=== PATIENT | female | born 1995 | race Caucasian/White ===

== ENCOUNTER 2016-11-03 15:20 | Inpatient (IN) | payer OTHER ==
[2016-11-03] MEDS ORDERED: DEXTROSE 5%-LACTATED RINGERS 1,000 ML IV SCH ×2 (17:00→17:45)
--- NOTE | 2016-11-03 17:01 | HP ---
Past Medical History - Admission Chief Complaint: Labor pain History of Present Illness: 21 yo @ 40 weeks gestation, presents c/o labor pain. She denies any ROM nor vaginal bleeding. History Source: Patient Limitations to Obtaining History: No Limitations - Past Medical History ...: 1 ...Para: 0 - Past Surgical History Past Surgical History: Yes: None Hx Myomectomy: No Hx Transabdominal Cerclage: No - Smoking History Smoking history: Never smoked Have you smoked in the past 12 months: No - Alcohol/Substance Use Hx Alcohol Use: No History of Substance Use: reports: None - Social History Usual Living Arrangement: Yes: With Parent History of Recent Travel: No Home Medications - Allergies Allergies/Adverse Reactions: Allergies Allergy/AdvReac Type Severity Reaction Status Date / Time No Known Allergies Allergy Verified 11/03/16 17:03 - Home Medications Home Medications: Ambulatory Orders [id number]/Iron Fumarate/FA/Dss [ 19 Tablet] 1 each PO DAILY 10/25/16 Family Disease History - Family Disease History Family History: Unremarkable Review of Systems - Review of Systems Constitutional: reports: No Symptoms Eyes: reports: No Symptoms HENT: reports: No Symptoms Neck: reports: No Symptoms Cardiovascular: reports: No Symptoms Respiratory: reports: No Symptoms Gastrointestinal: reports: No Symptoms Genitourinary: reports: Pain Breasts: reports: No Symptoms Reported Musculoskeletal: reports: No Symptoms Integumentary: reports: No Symptoms Neurological: reports: No Symptoms Psychiatric: reports: No Symptoms Pain Intensity: 8 Physical Exam - Maternity Constitutional: Yes: Well Nourished Eyes: Yes: Conjunctiva Clear HENT: Yes: Atraumatic Neck: Yes: Supple, Trachea Midline Cardiovascular: Yes: Regular Rate and Rhythm Lungs: Clear to auscultation - Abdominal Exam/OB Number of Fetuses: Single Presentation: Vertex Intensity: Mod/Strong - Vaginal Exam/OB Vaginal Bleediing: No - Physical Exam Psychiatric: Yes: Oriented
[2016-11-03 17:51] VITALS: BMI 29.2
[2016-11-03 17:54] LABS: BASOPHIL 0.5 % (0-2.0); EOSINOPHIL 0.2 % (0-4.5); MCHC 32.6 g/dl (32.0-36.0); MEAN PLT VOLUME 11.1 fl (7.5-11.1); NEUTROPHILS 80.4 % (42.8-82.8); PLATELET COUNT 134 K/MM3 (134-434); RDW 14.5 % (11.6-15.6); WHITE BLOOD COUNT 13.8 K/mm3 (4.0-10.0)
[2016-11-03 18:36] LABS: INR 0.9 (0.82-1.09); PROTHROMBIN TIME (PATIENT) 9.9 SEC (9.98-11.88)
[2016-11-03 18:39] LABS: ACTIVATED PTT 26.2 SECONDS (26.9-34.4)
[2016-11-03] MEDS ORDERED: BUTORPHANOL TARTRATE 1 MG/ML VIAL IVPUSH PRN (18:44)
[2016-11-03] MEDS ORDERED: PROMETHAZINE HCL 25 MG/1 ML VIAL IVPUSH PRN (18:45)
[2016-11-03 19:42] LABS: ANION GAP 11 (8-16); CALCIUM 8.8 mg/dL (8.5-10.1); CO2 22 mmol/L (21-32); CREATININE 0.4 mg/dL (0.55-1.02); GLUCOSE,RANDOM 87 mg/dL (74-106)
[2016-11-03] MEDS ORDERED: FENTANYL/BUPIVACAINE/NS/PF - PCEA - 50 ML DISP.SYRIN EP SCH (22:45)
[2016-11-03] MEDS ORDERED: ELECTROLYTE-148 SOLN 500 ML IV ONE (23:30)
[2016-11-03] MEDS: ELECTROLYTE-148 SOLN 1,000 ML IV SCH (23:30)
[2016-11-04] MEDS: ELECTROLYTE-148 SOLN 1,000 ML IV SCH ×3 (04:30→07:15)
[2016-11-04] MEDS ORDERED: ACETAMINOPHEN 325 MG TABLET (FP) PO ONE (06:15)
[2016-11-04] MEDS ORDERED: ELECTROLYTE-148 SOLN 500 ML IV ONE (07:00)
[2016-11-04] MEDS ORDERED: CITRIC ACID/SODIUM CITRATE 30 ML UNIT-DOSE CUP PO ONE ×2 (07:00→07:16)
--- NOTE | 2016-11-04 07:23 | PN ---
Progress Note (short form) - Note Progress Note: Patient seen and evaluated, status post epidural anesthesia. She's comfortable, denies any fever. FHR : !90's, no accelerations [place] : + irregular ctx VE : /-2 A / P :
[2016-11-04] MEDS ORDERED: ELECTROLYTE-148 SOLN 1,000 ML IV SCH (07:30)
[2016-11-04] MEDS ORDERED: morphine SULFATE/Preservative Free 0.5 MG/ML (1cc Syringe) EP ONE (08:11)
[2016-11-04] MEDS ORDERED: ONDANSETRON 4 MG/2 ML VIAL IVPB PRN (08:11)
[2016-11-04] MEDS ORDERED: IBUPROFEN 800 MG/8 ML IJ IVPB PRN (08:12)
[2016-11-04] MEDS ORDERED: METHYLERGONOVINE MALEATE 0.2 MG/1 ML AMP IM PRN (08:14)
[2016-11-04 08:18] LABS: ARTERIAL BLD GAS O2 SATURATION 56.3 % (90-98.9); ARTERIAL BLOOD GAS BASE EXCESS 0.3 meq/l (-2-2); ARTERIAL BLOOD GAS HCO3 25.8 meq/L (22-26); ARTERIAL BLOOD GAS pH 7.36 (7.35-7.45)
--- NOTE | 2016-11-04 08:18 | OP ---
Operative Note - Note: Operative Date: 11/04/16 Pre-Operative Diagnosis: Non Reassuring Heart rate Operation: Primary Low Transverse Findings: Baby in LOT position Post-Operative Diagnosis: Same as Pre-op Surgeon: Meghan Story Shallot Packer: Virginia Rosas Anesthesia: Epidural Specimens Removed: Placenta Estimated Blood Loss (mls): 500
[2016-11-04 08:19] LABS: ARTERIAL BLOOD GAS PO2 27.2 mmHg (80-100); PT. ON O2? no
[2016-11-04 08:21] LABS: ARTERIAL BLD GAS O2 SATURATION 21.9 % (90-98.9); ARTERIAL BLOOD GAS BASE EXCESS -1.1 meq/l (-2-2); ARTERIAL BLOOD GAS HCO3 26.7 meq/L (22-26); ARTERIAL BLOOD GAS pH 7.27 (7.35-7.45)
[2016-11-04 08:22] LABS: ARTERIAL BLOOD GAS PO2 15.7 mmHg (80-100); PT. ON O2? no
[2016-11-04] MEDS: D5W-LR W/ 20 UNITS OXYTOCIN 1,000 ML IV SCH ×2 (10:15→20:44)
[2016-11-05] MEDS: IBUPROFEN 600 MG TABLET (FP) PO PRN ×3 (05:39→22:01)
[2016-11-05] MEDS: SIMETHICONE 80 MG TAB.CHEW (FP) PO PRN ×3 (05:39→22:00)
[2016-11-05] MEDS ORDERED: BISACODYL 10 MG SUPP.RECT RC PRN (08:14)
[2016-11-05 08:34] LABS: BASOPHIL 0.3 % (0-2.0); EOSINOPHIL 0.3 % (0-4.5); MCH 27.8 pg (25.7-33.7); MCHC 32.8 g/dl (32.0-36.0); MEAN CELL VOLUME 84.7 fl (80-96); MEAN PLT VOLUME 10.9 fl (7.5-11.1); NEUTROPHILS 82.2 % (42.8-82.8); PLATELET COUNT 116 K/MM3 (134-434); RDW 14.3 % (11.6-15.6); WHITE BLOOD COUNT 14.9 K/mm3 (4.0-10.0)
--- NOTE | 2016-11-05 08:40 | PN ---
Progress Note (short form) - Note Progress Note: 21F POD1 s/p C section under spinal anesthetic with intrathecal duramorph for post operative pain. Pt states that pain is well controlled, reports no anesthetic complications. Sensory and motor function is intact in bilateral lower extremities.
[2016-11-05] MEDS ORDERED: oxyCODONE HCL 5 MG TABLET PO PRN (09:19)
[2016-11-05] MEDS ORDERED: DIPHTH,PERTUSS(ACELL),TET 0.5 ML DISP.SYRIN IM ONE (10:00)
--- NOTE | 2016-11-05 11:54 | PN ---
Post Progress Note - Subjective Subjective: 21 yo Para 1, status post , seen and evaluated. Doing well, no complaints. Post Day: 1 Type of Delivery: Primary C/S Vital Signs: Vital Signs Temperature 99.6 F 11/05/16 07:15 Pulse Rate 96 H 11/05/16 07:15 Respiratory Rate 18 11/05/16 08:00 Blood Pressure 103/61 11/05/16 07:15 O2 Sat by Pulse Oximetry (%) 99 11/04/16 09:40 Breast Exam: Yes: Soft Uterus: Yes: Fundus Firm Incision: Yes: Dressing dry and intact Abdomen/GI: Yes: Abdomen soft, Tolerating PO Lochia: Yes: Rubra Lochia, amount: Small Extremities: Yes: Calves non-tender Perineum: Yes: Intact Activity: Ambulating - Labs Labs: CBC WBC 14.9 K/mm3 (4.0-10.0) H 11/05/16 07:00 RBC 4.60 M/mm3 (3.60-5.2) 11/05/16 07:00 Hgb 12.8 GM/dL (10.7-15.3) 11/05/16 07:00 Hct 39.0 % (32.4-45.2) 11/05/16 07:00 MCV 84.7 fl (80-96) 11/05/16 07:00 MCH 27.8 pg (25.7-33.7) 11/05/16 07:00 MCHC 32.8 g/dl (32.0-36.0) 11/05/16 07:00 RDW 14.3 % (11.6-15.6) 11/05/16 07:00 Plt Count 116 K/MM3 (134-434) L 11/05/16 07:00 MPV 10.9 fl (7.5-11.1) 11/05/16 07:00 Neutrophils % 82.2 % (42.8-82.8) 11/05/16 07:00 Lymphocytes % 7.8 % (8-40) L D 11/05/16 07:00 Monocytes % 9.4 % (3.8-10.2) 11/05/16 07:00 Eosinophils % 0.3 % (0-4.5) 11/05/16 07:00 Basophils % 0.3 % (0-2.0) 11/05/16 07:00 Problem List - Problems (1) Status post primary low transverse section Code(s): Z98.891 - HISTORY OF UTERINE SCAR FROM PREVIOUS SURGERY Assessment/Plan Status post Stable Ambulation Analgesia as needed Continue Post op care
--- NOTE | 2016-11-05 11:57 | DS ---
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 Signs: Vital Signs Temperature 99.6 F 11/05/16 07:15 Pulse Rate 96 H 11/05/16 07:15 Respiratory Rate 18 11/05/16 08:00 Blood Pressure 103/61 11/05/16 07:15 O2 Sat by Pulse Oximetry (%) 99 11/04/16 09:40 Constitutional: Yes: Well Nourished Eyes: Yes: Conjunctiva Clear HENT: Yes: Atraumatic Neck: Yes: Supple, Trachea Midline Cardiovascular: Yes: Regular Rate and Rhythm Respiratory: Yes: Regular, CTA Bilaterally Gastrointestinal: Yes: Normal Bowel Sounds External Genitalia: Yes: Normal Vaginal Exam: Yes: Normal Uterus: Yes: Firm Wound/Incision: Yes: Mauricio Intact Neurological: Yes: Alert, Oriented Psychiatric: Yes: Alert, Oriented Labs: CBC, BMP 11/05/16 07:00 11/03/16 17:20 Delivery - Delivery Type of Anesthesia: Epidural Episiotomy/Laceration: None EBL (cc): 500 Delivery, Single - Stages of Labor Date 1st Stage Initiatied: 11/03/16 Time 1st Stage Initiated: 10:00 Date of Delivery: 11/04/16 Time of Delivery: 07:43 Time Placenta Delivered: 07:44 - 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 F/U in clinic in 1 week Disposition: HOME - Home Medications Comprehensive Discharge Medication List: Ambulatory Orders [id number]/Iron Fumarate/FA/Dss [ 19 Tablet] 1 each PO DAILY 10/25/16 Ferrous Sulfate [Feosol] 325 mg PO 11/03/16
[2016-11-05] MEDS: ACETAMINOPHEN 325 MG TABLET (FP) PO PRN ×2 (12:51→22:00)
[2016-11-06] MEDS: IBUPROFEN 600 MG TABLET (FP) PO PRN ×2 (10:16→22:29)
[2016-11-06] MEDS: ACETAMINOPHEN 325 MG TABLET (FP) PO PRN ×2 (10:17→22:29)
[2016-11-06] MEDS: SIMETHICONE 80 MG TAB.CHEW (FP) PO PRN ×2 (10:18→22:29)
--- NOTE | 2016-11-06 12:31 | PN ---
Post Progress Note - Subjective Subjective: c/o pain scale 2-3/10 Post Day: 2 Type of Delivery: Primary C/S Vital Signs: Vital Signs Temperature 99.1 F 11/06/16 07:10 Pulse Rate 85 11/06/16 07:10 Respiratory Rate 18 11/06/16 07:10 Blood Pressure 105/70 11/06/16 07:10 O2 Sat by Pulse Oximetry (%) 99 11/04/16 09:40 Breast Exam: Yes: Soft. No: Engorged Uterus: Yes: Fundus Firm, Fundus below umbilicus, Non-tender Incision: Yes: Mauricio intact. No: Redness, Oozing Abdomen/GI: Yes: Abdomen soft, Passing flatus (bm done ), Tolerating PO (diet ) . No: Abdominal Distention, Tender Lochia: Yes: Rubra Lochia, amount: Moderate Extremities: Yes: Calves non-tender Perineum: Yes: Intact Activity: Ambulating - Labs Labs: CBC WBC 14.9 K/mm3 (4.0-10.0) H 11/05/16 07:00 RBC 4.60 M/mm3 (3.60-5.2) 11/05/16 07:00 Hgb 12.8 GM/dL (10.7-15.3) 11/05/16 07:00 Hct 39.0 % (32.4-45.2) 11/05/16 07:00 MCV 84.7 fl (80-96) 11/05/16 07:00 MCH 27.8 pg (25.7-33.7) 11/05/16 07:00 MCHC 32.8 g/dl (32.0-36.0) 11/05/16 07:00 RDW 14.3 % (11.6-15.6) 11/05/16 07:00 Plt Count 116 K/MM3 (134-434) L 11/05/16 07:00 MPV 10.9 fl (7.5-11.1) 11/05/16 07:00 Neutrophils % 82.2 % (42.8-82.8) 11/05/16 07:00 Lymphocytes % 7.8 % (8-40) L D 11/05/16 07:00 Monocytes % 9.4 % (3.8-10.2) 11/05/16 07:00 Eosinophils % 0.3 % (0-4.5) 11/05/16 07:00 Basophils % 0.3 % (0-2.0) 11/05/16 07:00 Assessment/Plan stable plan ct PO care
[2016-11-07 07:38] LABS: BASOPHIL 0.6 % (0-2.0); EOSINOPHIL 3.1 % (0-4.5); MCH 27.4 pg (25.7-33.7); MCHC 32.6 g/dl (32.0-36.0); MEAN CELL VOLUME 84.1 fl (80-96); MEAN PLT VOLUME 10.6 fl (7.5-11.1); NEUTROPHILS 65.6 % (42.8-82.8); PLATELET COUNT 152 K/MM3 (134-434); RDW 14.6 % (11.6-15.6); WHITE BLOOD COUNT 9.5 K/mm3 (4.0-10.0)
[2016-11-07 07:45] VITALS: BP 117/73; PULSE 84; TEMP 98
[2016-11-07] MEDS: ACETAMINOPHEN 325 MG TABLET (FP) PO PRN (09:48)
[2016-11-07] MEDS: SIMETHICONE 80 MG TAB.CHEW (FP) PO PRN (09:48)
[2016-11-07] MEDS: IBUPROFEN 600 MG TABLET (FP) PO PRN (09:49)
--- NOTE | 2016-11-07 15:32 | PATH ---
Surgical Pathology Report Patient Name: LESTER LEONARDO [facility]. Rec. 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 Specimen(s) Received PLACENTA Clinical History , 40.1 weeks Nonreassuring heart rate, tachycardia Final Diagnosis PLACENTA, DELIVERY: FOCALLY DISRUPTED THIRD TRIMESTER PLACENTA WITH EARLY ACUTE CHORIOAMNIONITIS OF MEMBRANES AND THREE-VESSEL UMBILICAL CORD. Electronically Signed Dae Zarco M.D. Gross Description The specimen is received fresh labeled placenta and is a 470 gram, 18.5 x 14.5 x 2.7 cm. placenta with attached membranes and umbilical cord. The attached membranes are navarrete, thick, cloudy and insert marginally. The umbilical cord measures 22 cm. in length and averages 1 cm. in diameter. The cord inserts centrally. No true knots or strictures are identified. Cut surface of the umbilical cord reveals 3 vessels. The surface is cuellar-blue with minimal fibrin deposition and appropriate caliber vessels. The maternal surface is red-brown with focal defects. Sectioning reveals red-brown, spongy parenchyma. No lesions are identified. Shield Installer sections are submitted in three cassettes as follows: 1- membrane roll and umbilical cord; 2-3- full thickness sections of placenta. /11/06/2016 [facility]11/06/2016
== END 2016-11-07 13:45 | disposition home or self-care (01) | DRG 540 ==
LOC: JDEL 15:20 → JLDR 16:25 → J3W 11-04 10:31
PROVIDERS: ADMIT Obstetrics & Gynecology; ATTEND Obstetrics & Gynecology
PROC: 10D00Z1 Extraction of Products of Conception, Low, Open Approach (ICD-10-PCS; principal; 2016-11-04)
DX: O76 Abnormality in fetal heart rate and rhythm complicating labor and delivery (principal); O48.0 Post-term pregnancy; Z3A.40 40 weeks gestation of pregnancy; Z37.0 Single live birth
CPT/HCPCS: 36415; 36600; 80048; 82803; 85025; 85610; 85730; 86593; 86850; 86900; 86901; 88307-TC; 90715

== ENCOUNTER 2020-01-15 07:55 | Emergency (ER) | payer SELFPAY ==
[2020-01-15 08:01] VITALS: TEMP 98.2; BMI 29.9
--- OUTSIDE RECORDS SUMMARY | 2020-01-15 08:03 | XMS ---
:1995 Author Organization [facility] Care Team Providers Name Role Phone ED STAFF PHYSICIAN Unavailable Unavailable ED STAFF PHYSICIAN, STAFF Unavailable Unavailable Re-disclosure Warning The records that you are about to access may contain information from federally- assisted alcohol or drug abuse programs. If such information is present, then the following federally mandated warning applies: This information has been disclosed to you from records protected by federal confidentiality rules (42 CFR part 2). The federal rules prohibit you from making any further disclosure of this information unless further disclosure is expressly permitted by the written consent of the person to whom it pertains or as otherwise permitted by 42 CFR part 2. A general authorization for the release of medical or other information is NOT sufficient for this purpose. The Federal rules restrict any use of the information to criminally investigate or prosecute any alcohol or drug abuse patient.The records that you are about to access may contain highly sensitive health information, the redisclosure of which is protected by Article 27-F of the [facility] Public Health law. If you continue you may haveaccess to information: Regarding HIV / AIDS; Provided by facilities licensed or operated by the [facility] Office of Mental Health; or Provided by the [facility] Office for People With Developmental Disabilities. If such information is present, then the following [facility] mandated warning applies: This information has been disclosed to you from confidential records which are protected by state law. State law prohibits you from making any further disclosure of this information without the specific written consent of the person to whom it pertains, or as otherwise permitted by law. Any unauthorized further disclosure in violation of state law may result in a fine or fdc sentence or both. A general authorization for the release of medical or other information is NOT sufficient authorization for further disclosure. Allergies and Adverse Reactions Type Description Substance Reaction Status Data Source(s ) No Known No Known Allergies No Known eCW3 ( [place] [facility] Allergies [facility]) No Known No Known Allergies No Known eCW3 ( [place] [facility] Allerg[facility]) No Known No Known Allergies No known eCW3 ( [place] Allergies allergies [facility]) Encounters Encounter Providers Location Date Indications Data Source(s ) Emergency Attender: ED STAFF H 07/13/2019 [facility] PHYSICIANAttender: 02:52:00 PM EDT [facility] STAFF ED STAFF - 07/13/2019 PHYSICIANAdmitter: 08:09:00 PM EDT ED STAFF PHYSICIAN Patient discharged. Outpatient [facility] 10/12/2018 12:00:00 AM eCW3 ([place] [id number] EDT - 10/12/2018 12:00:00 Health Care) AM EDT Outpatient [facility] 08/05/2018 12:00:00 AM eCW3 ([place] [id number] EDT - 08/05/2018 12:00:00 Health Care) AM EDT Outpatient [facility] 05/26/2018 12:00:00 AM eCW3 ([place] [id number] EST - 05/26/2018 12:00:00 Health Care) AM EST Medications Medication Brand Start Product Dose Route Administrative Pharmacy [facility] Indications Reaction Description Data Name Date Form Instructions Instructions Source(s) TRI-LO-SPRI [facility] .0 active TRI-LO-SP RIN eCW3 NTEC 0.2018 {tabl BRYAN 0.18 - ( Juan 0.025 MG 12:00: et} 0.025 [place] 00 [facility] EST Care) [facility]PRI [facility] .0 active TRI-LO-SP RIN eCW3 NTEC 0.2018 {tabl BRYAN 0.18 - ( Juan 0.025 MG 12:00: et} 0.025 MG [place] 00 [facility] EST Care) Tri-Lo-Spri [facility] .0 active Tri-Lo-Sp rin eCW3 ntec 0.2018 {tabl bryan 0.18 - ( Juan 0.025 MG 12:00: et} 0.025 MG [place] 00 [facility] EST Care) UNK 05/06/ suspend eC W3 Vitamins 2017 ed Vitamins (Juan 12:00: [place] 00 AM Health RUST Care) Iron UNK 05/06/ suspend Iron eCW3 2017 ed ([place] 12:00: [place] 00 AM [facility] RUST Care) UNK 05/06/ suspend eC W3 VITAMINS 2017 ed VITAMINS ([place] 12:00: [place] 00 AM Health EST Care) UNK 05/06/ suspend eC W3 VITAMINS 2017 ed VITAMINS ([place]uan 12:00: [place] 00 AM Health EST Care) Iron UNK 05/06/ suspend Iron eCW3 2017 ed (Juan 12:00: [place] 00 AM Health EST Care) Iron UNK 05/06/ suspend Iron eCW3 2017 ed (Juan 12:00: [place] 00 AM Health EST Care) Insurance Providers Payer name Policy type Policy ID Covered Covered republican's Policy P lele / Coverage republican ID relationship to Olea Inf ormation type olea MVP MEDICAID [id number] SP [id number] HMO W [id number] [place] Care [id number] S [id number] [place] [employer] Dental [id number] S [id number] [employer] CHP Eb Vision [id number] S [id number] [facility] Problems, Conditions, and Diagnoses Code Display Name Description Problem Type Effective Data Sour ce(s) Dates V15.83 PERSONAL HISTORY OF Hx Underimmunizn Diagnosis 06/18/2018 [place] UNDERIMMUNIZATION Status 04:11:47 PM [facility]) Social History Code Duration Value Status Description Data Source(s ) Smoking 08/05/2018 Never Smoker completed Never Smoker eCW3 ([place] 12:00:00 AM [facility]) Smoking 08/05/2018 Never Smoker completed Never Smoker eCW3 ([place] 12:00:00 AM [facility]) Smoking 05/26/2018 Never Smoker completed Never Smoker eCW3 ([place] 12:00:00 AM EST [facility]) Never Smoker completed Never Smoker eCW3 ([place] [facility]) Smoking Unknown if ever completed Unknown if ever Faina James [facility] Never Smoker completed Never Smoker eCW3 ([facility]) Never Smoker completed Never Smoker eCW3 ([facility]) Vital Signs ID Date Data Source UNK Name Value Range Interpretation Code Description Data Source(s) Diastolic blood 69 mm[Hg] 69 mm[Hg] eCW3 ([facility]) Systolic blood 108 mm[Hg] 108 mm[Hg] eCW3 ([facility]) Body temperature 98.3 [degF] 98.3 [degF] eCW3 ( [facility]) Heart rate 20 /min 20 /min eCW3 ([facility]) Body mass index 26.28 kg/m2 26.28 kg/m2 eCW3 ([place]iana quiros (BMI) [Ratio] [facility]) Body weight 146 [lb_av] 146 [lb_av] eCW3 ([facility]) Body height 62.50 [in_i] 62.50 [in_i] eCW3 ([facility]) Diastolic blood 59 mm[Hg] 59 mm[Hg] eCW3 ([facility]) Systolic blood 99 mm[Hg] 99 mm[Hg] eCW3 ([facility]) Body temperature 97.7 [degF] 97.7 [degF] eCW3 ( [facility]) Heart rate 20 /min 20 /min eCW3 ([facility]) Body mass index 25.92 kg/m2 25.92 kg/m2 eCW3 (Liana quiros (BMI) [Ratio] [facility]) Body weight 144 [lb_av] 144 [lb_av] eCW3 ([facility]) Body height 62.5 [in_i] 62.5 [in_i] eCW3 ([facility])
--- NOTE | 2020-01-15 08:21 | PDOC ---
History of Present Illness - General Chief Complaint: Pain Stated Complaint: SYNCOPE/NEAR SYNCOPE Time Seen by Provider: 01/15/20 08:12 - History of Present Illness Initial Comments: Deysi Canales is a 24yo woman with a history of "nervousness" who presents with left neck and shoulder pain since she woke up this morning. She states that she was feeling well when she went to bed yesterday, and she did not do any unusual activity yesterday. She denies any trauma, injury, heavy lifting, or other cause of pain. She says that she noticed the pain as soon as she woke up today. She attempted to walk to the bathroom but became very upset, started breathing rapidly, and fell to the ground. She says that she was yelling for her boyfriend throughout. Currently, she continues to report pain in the left neck and shoulder that prev ents her from fully turning her head to the left or lifting her left arm. She denies any numbness/paresthesia, weakness, changes in vision, pain in her arm, or other current symptoms. She did not take any pain medication at home other than washing the area with rubbing alcohol. Past History - Medical History Allergies/Adverse Reactions: Allergies Allergy/AdvReac Type Severity Reaction Status Date / Time No Known Allergies Allergy Verified 01/15/20 08:01 Home Medications: Ambulatory Orders Prenat 115/Iron Fum/Folic/Dss [ 19 Tablet] 1 each PO DAILY 10/25/16 Ferrous Sulfate [Feosol] 325 mg PO 11/03/16 Ibuprofen [Motrin -] 600 mg PO QID #28 tablet 11/06/16 Asthma: No Cancer: No Cardiac Disorders: No COPD: No Diabetes: No HTN: No Seizures: No Thyroid Disease: No - Reproductive History Is Patient Now?: No - Psycho-Social/Smoking History Smoking History: Never smoked Have you smoked in the past 12 months: No Review of Systems - Review of Systems Comments:: General: No fevers, no chills, no weight or appetite change, no malaise HEENT: No changes in vision, no changes in hearing, no congestion, no sore throat CV: No chest pain, no palpitations, no LE edema Pulm: No SOB, no cough, no wheezing GI: No nausea or vomiting, no change in bowel habits, no melena : No frequency, no urgency, no dysuria Musc: See HPI Skin: No rash, no lesions, no erythema Endo: No excessive thirst, no heat/cold intolerance Heme: No unusual bruising or bleeding, no swollen glands Neuro: No syncope, no numbness/tingling, no focal weakness Vasc: No claudication Psych: No recent change in mood, no SI or HI. +Frequent anxiety *Physical Exam - Vital Signs Last Vital Signs Temp Pulse Resp BP Pulse Ox 98.2 F 93 H 18 119/74 99 01/15/20 07:58 01/15/20 07:58 01/15/20 07:58 01/15/20 07:58 01/15/20 07:58 - Physical Exam General: In no acute distress HEENT: Atraumatic, PERRL, EOMI, MMM, voice normal. Limited neck ROM secondary to pain, unable to turn head to the left. Cards: RRR, no murmur appreciated Pulm: Comfortable on room air, clear to auscultation bilaterally Abd: Soft, nontender, nondistended Ext: Atraumatic. No LE edema. Strength equal bilaterally. LUE ROM limited by pain. Bondurant-sized area of muscle spasm palpable in medial left trapezius at base of neck. Skin: Normal color, no rashes or lesions Neuro: A&Ox3, CN grossly intact, normal speech, motor/sensory grossly intact and symmetric Psych: Appears anxious Medical Decision Making - Medical Decision Making 01/15/20 08:20 Deysi Canales is a 24yo woman with a PMH of self-reported anxiety who presents with left neck and left shoulder pain since she woke this morning. She denies any inciting incident or associated symptoms. - Palpable knot in left trapezius m, most likely symptoms are due to muscle spasm - Lidocaine patch - Urine preg. If negative, will give valium and toradol 01/15/20 09:12 - Still need urine preg to give meds - Plan for lidocaine trigger point injection into left trapezius m. 01/15/20 09:42 - Injection of 7cc of 1% lidocaine into palpable muscle knot in left trapezius at posterior base of neck. The area was prepped and sterilized with alcohol prior to injection. The procedure was well tolerated with no adverse consequences appreciated, and the patient reported near-immediate improvement in her pain - Will reassess in 5-10 minutes, plan to d/c home if improved 01/15/20 11:30 - Urine preg negative - Ibuprofen 600mg given for continued soreness - Home care, return precautions discussed in detail. Will d/c Seen with Dr Sho Freeman PGY3 Discharge - Discharge Information Problems reviewed: Yes Clinical Impression/Diagnosis: Trapezius muscle spasm, Pre-syncope, Torticollis Condition: Stable Disposition: HOME - Admission No - Follow up/Referral Referrals: [facility] at [place] [Provider Group] - Patient Discharge Instructions Patient Printed Discharge Instructions: DI for Muscle Spasm Additional Instructions: Discharge Instructions: You were seen in the emergency department for neck pain. Your symptoms improved with medications. Your pain is most likely due to a muscle spasm. Home Care and Follow Up: - You may use over the counter medications as needed for pain at home. 650- 1000mg acetaminophen (Tylenol) or 600mg ibuprofen (Motrin or Advil) can be used every 6-8 hours. If needed for continued pain, these medications may be alternated every 3-4 hours. - You may buy a numbing patch that contains lidocaine (the patch is 4% lidocaine) that can be placed over the areas of greatest pain. The lidocaine patch may be placed for 12 hours then removed for 12 hours. You had one placed in the emergency department that can stay in place all day, and you may use another tomorrow morning. - Try using an ice pack for 20 minutes every hour or a heating pad for additional pain control. These should NOT be used over the lidocaine patch, but you may place them over the areas of pain while the patch is off. - Do not stop moving around. As much as you can tolerate, continue to do light exercise and stretching exercises. Increase your activity level as much as you can tolerate daily. - Establish care with a primary physician as soon as possible. You have been given contact information for the [facility] internal medicine clinic. - Seek immediate medical care if you have significant worsening of your symptoms, if you are unable to move your head or arm, if your symptoms do not improve over the next day or two, if you have any numbness or weakness in your arm, or you have any other medical emergency. - Post Discharge Activity
[2020-01-15] MEDS ORDERED: LIDOCAINE 5% TOPICAL PATCH TP ONE (08:28)
--- NOTE | 2020-01-15 08:31 | PDOC ---
Attending Attestation - Resident Resident Name: PeteLolis - ED Attending Attestation I have performed the following: I have examined & evaluated the patient, The case was reviewed & discussed with the resident, I agree w/resident's findings & plan, Exceptions are as noted - HPI HPI: 01/15/20 08:28 24 F with no PMH presents to ED with possible syncopal episode. Pt states that she awoke with a cramp in her neck. Reports pain in the left side of her neck, with no stiffness, fevers, or headache. Pt states she went to the bathroom but began to feel very nervous and started hyperventilating. As she stood up from the toilet, she began to feel her vision darken, causing her to fall to the floor. Pt denies headstrike. Was reportedly conscious the entire time. Pt was helped up by her boyfriend and returned to baseline shortly after. Pt denies CP/SOB/palpitations. - Physicial Exam PE: 01/15/20 08:30 "GENERAL: Awake, alert, and fully oriented, in no acute distress. HEAD: No signs of trauma EYES: PERRLA, EOMI, sclera anicteric, conjunctiva clear ENT: Auricles normal inspection, hearing grossly normal, nares patent, oropharynx clear without exudates. Moist mucosa NECK: Nontender, no stepoffs, Normal ROM, supple, no lymphadenopathy, JVD, or masses LUNGS: Breath sounds equal, clear to auscultation bilaterally. No wheezes, and no crackles HEART: Regular rate and rhythm, normal S1 and S2, no murmurs, rubs or gallops ABDOMEN: Soft, nontender, normoactive bowel sounds. No guarding, no rebound. No masses EXTREMITIES: Normal range of motion, no edema. No clubbing or cyanosis. No cords, erythema, or tenderness NEUROLOGICAL: Cranial nerves II through XII intact. 5/5 strength and sensation in all extremities, Normal speech, normal gait, normal cerebellar function SKIN: Warm, Dry, normal turgor, no rashes or lesions noted. - Medical Decision Making 01/15/20 08:30 24 F with pre-syncope/syncope. EKG completely normal, no evidence of arrhythmia. Vitals stable. Pt very well appearing with no evidence of anemia. Only complaint at this time is neck cramp. - Pain control - UPT 01/15/20 09:48 Trigger point injection performed with good relief of pt's neck spasm. Pt is well appearing, with normal vitals. Clinically stable for DC at this time. I discussed the physical exam findings, ancillary test results and final diagnoses with the patient. I answered all of the patient's questions. The patient was satisfied with the care received and felt comfortable with the discharge plan and treatment plan. The patient agrees to follow up with the primary care physician within 24-72 hours. Discharge - Discharge Information Problems reviewed: Yes Clinical Impression/Diagnosis: Trapezius muscle spasm, Pre-syncope, Torticollis Condition: Stable Disposition: HOME - Follow up/Referral Referrals: [facility] [place] [Provider Group] - Patient Discharge Instructions Patient Printed Discharge Instructions: DI for Muscle Spasm Additional Instructions: Discharge Instructions: You were seen in the emergency department for neck pain. Your symptoms improved with medications. Your pain is most likely due to a muscle spasm. Home Care and Follow Up: - You may use over the counter medications as needed for pain at home. 650- 1000mg acetaminophen (Tylenol) or 600mg ibuprofen (Motrin or Advil) can be used every 6-8 hours. If needed for continued pain, these medications may be alternated every 3-4 hours. - You may buy a numbing patch that contains lidocaine (the patch is 4% lidocaine) that can be placed over the areas of greatest pain. The lidocaine patch may be placed for 12 hours then removed for 12 hours. You had one placed in the emergency department that can stay in place all day, and you may use an other tomorrow morning. - Try using an ice pack for 20 minutes every hour or a heating pad for additional pain control. These should NOT be used over the lidocaine patch, but you may place them over the areas of pain while the patch is off. - Do not stop moving around. As much as you can tolerate, continue to do light exercise and stretching exercises. Increase your activity level as much as you can tolerate daily. - Establish care with a primary physician as soon as possible. You have been given contact information for the [facility] internal medicine clinic. - Seek immediate medical care if you have significant worsening of your symptoms, if you are unable to move your head or arm, if your symptoms do not improve over the next day or two, if you have any numbness or weakness in your arm, or you have any other medical emergency. - Post Discharge Activity
[2020-01-15] MEDS ORDERED: LIDOCAINE 5% TOPICAL PATCH ONE (08:39)
[2020-01-15] MEDS ORDERED: LIDOCAINE HCL 1%, 10 MG/ML (50 mL VIAL) SQ ONE (09:04)
[2020-01-15] MEDS ORDERED: LIDOCAINE HCL/PF 1% SDV 5ML VIAL ONE ×2 (09:12→09:16)
[2020-01-15] MEDS ORDERED: IBUPROFEN 600 MG TABLET (FP) PO ONE ×2 (10:24→10:31)
[2020-01-15 10:42] VITALS: BP 108/68; PULSE 87
--- NOTE | 2020-01-15 15:03 | EKG ---
Test Reason : Blood Pressure : / mmHG Vent. Rate : 089 BPM Atrial Rate : 089 BPM P-R Int : 154 ms QRS Dur : 080 ms QT Int : 372 ms P-R-T Axes : 059 -02 012 degrees QTc Int : 452 ms NORMAL SINUS RHYTHM NORMAL ECG NO PREVIOUS ECGS AVAILABLE Confirmed by MD Cirilo, Moises ([id number]) on 01/15/2020 3:03:20 PM Referred By: Confirmed By:Moises Kerr MD
== END 2020-01-15 11:31 | disposition home or self-care (01) ==
LOC: JER 07:55
DX: M62.838 Other muscle spasm (principal); R55 Syncope and collapse; M43.6 Torticollis
CPT/HCPCS: 84703; 93005; 93010; 99284-25

== ENCOUNTER 2021-02-22 19:30 | Emergency (ER) | payer OTHER ==
[2021-02-22 19:36] VITALS: BP 121/81; PULSE 88; TEMP 98; BMI 25.6
[2021-02-22] MEDS ORDERED: LACTATED RINGERS SOLUTION 1000 ML INFUS.BAG IV ONE (21:38)
[2021-02-22] MEDS ORDERED: ACETAMINOPHEN 325 MG TABLET (FP) PO ONE (21:38)
[2021-02-22] MEDS ORDERED: ACETAMINOPHEN 325 MG TABLET (FP) ONE (21:57)
[2021-02-22 22:08] LABS: BASO % 0.7 % (0-2.0); EOS % 0.5 % (0-4.5); HEMOGLOBIN 12.1 GM/dL (10.7-15.3); LYMPH % 23.3 % (8-40); MCHC 32.6 g/dl (32.0-36.0); MEAN CELL VOLUME 76.8 fl (80-96); MONO % 9.4 % (3.8-10.2); NEUT % 66.1 % (42.8-82.8); PLATELET COUNT 188 10^3/uL (134-434); RBC 4.82 M/mm3 (3.60-5.2); RDW 15.3 % (11.6-15.6); WHITE BLOOD COUNT 9.8 K/mm3 (4.0-10.0)
[2021-02-22 22:18] LABS: CHLORIDE 105 mmol/L (98-107); SODIUM 139 mmol/L (136-145)
[2021-02-22 22:21] LABS: ALBUMIN 3.8 g/dl (3.4-5.0); ANION GAP 7 MMOL/L (8-16); BLOOD UREA NITROGEN 11.7 mg/dL (7-18); CO2 26 mmol/L (21-32); GLUCOSE,RANDOM 101 mg/dL (74-106)
[2021-02-22 22:23] LABS: CREATININE 0.6 mg/dL (0.55-1.3); SGOT/AST 14 U/L (15-37); SGPT/ALT 21 U/L (13-61)
[2021-02-22 22:25] LABS: BILIRUBIN,TOTAL 0.2 mg/dL (0.2-1); TOT PROT 7.9 g/dl (6.4-8.2)
[2021-02-22 22:26] LABS: ALK PHOS 117 U/L (45-117)
[2021-02-22 22:30] LABS: URINE APPEARANCE CLEAR; URINE BILIRUBIN NEGATIVE (NEGATIVE); URINE COLOR YELLOW; URINE GLUCOSE (UA) NEGATIVE (NEGATIVE); URINE KETONE NEGATIVE (NEGATIVE); URINE LEUK ESTERASE NEGATIVE (NEGATIVE); URINE NITRITE NEGATIVE (NEGATIVE); URINE PROTEIN NEGATIVE (NEGATIVE); URINE UROBILINOGEN 0.2 mg/dL (0.2-1.0)
== END 2021-02-22 23:56 | disposition home or self-care (01) ==
LOC: JER 19:30
DX: N83.201 Unspecified ovarian cyst, right side (principal)
CPT/HCPCS: 36415; 76830-TC; 80053; 81003; 84702; 84703; 85025; 86850; 86900; 86901; 87086; 99284-25

== ENCOUNTER 2022-07-23 00:25 | Emergency (ER) | payer OTHER ==
[2022-07-23 00:35] VITALS: BP 113/73; PULSE 108; RESP 17; TEMP 98.5; BMI 29.2
[2022-07-23 04:04] LABS: EPI CELLS 11 /uL (0-25.1); HYALINE CASTS 0 /uL (0-3.1); PH,URINE 6.5 (5.0-8.0); URINE APPEARANCE CLEAR; URINE BACTERIA 750 /uL (0-1359); URINE BILIRUBIN NEGATIVE (NEGATIVE); URINE COLOR YELLOW; URINE GLUCOSE (UA) NEGATIVE (NEGATIVE); URINE KETONE 2+ (NEGATIVE); URINE LEUK ESTERASE TRACE (NEGATIVE); URINE NITRITE NEGATIVE (NEGATIVE); URINE PROTEIN NEGATIVE (NEGATIVE); URINE RBC 9 /uL (0-23.9); URINE UROBILINOGEN 0.2 mg/dL (0.2-1.0); URINE WBC 22 /uL (0-25.8)
== END 2022-07-23 04:51 | disposition home or self-care (01) ==
LOC: JER 00:25
DX: O23.42 Unspecified infection of urinary tract in pregnancy, second trimester (principal); Z3A.16 16 weeks gestation of pregnancy
CPT/HCPCS: 76815-TC; 81003; 87086; 99284-25

== ENCOUNTER 2022-12-30 10:14 | Inpatient (IN) | payer OTHER ==
[2022-12-30] MEDS ORDERED: ELECTROLYTE-148 SOLN 500 ML IV SCH ×2 (10:45→11:15)
[2022-12-30] MEDS ORDERED: CITRIC ACID/SODIUM CITRATE 30 ML UNIT-DOSE CUP PO ONE (10:45)
[2022-12-30 11:29] VITALS: BMI 35.1
[2022-12-30 12:37] LABS: SYPHILIS W/ RPR CONF NON-REACTIVE (NONREACTIVE)
[2022-12-30 13:06] LABS: HIV INTERPRETATION NEGATIVE (NEGATIVE)
[2022-12-30] MEDS ORDERED: LIGASURE IMPACT TP ONE (13:29)
[2022-12-30] MEDS ORDERED: OXYTOCIN 30 UNITS in 0.9% NS 30 UNIT/500 ML INFUS.BAG IVPB ONE (13:33)
[2022-12-30] MEDS ORDERED: morphine SULFATE/PF 1 MG/2 ML (2cc Syringe - QUVA) ONE (13:34)
[2022-12-30] MEDS ORDERED: ONDANSETRON 4 MG/2 ML VIAL ONE ×2 (13:35→16:11)
[2022-12-30] MEDS ORDERED: METOCLOPRAMIDE HCL INJECTION 10 MG/2 ML VIAL ONE (13:35)
[2022-12-30] MEDS ORDERED: ceFAZolin SODIUM 1 GM VIAL ONE (13:35)
[2022-12-30] MEDS ORDERED: DEXAMETHASONE SOD PHOSPHATE 4 MG/1 ML VIAL ONE (13:35)
[2022-12-30] MEDS ORDERED: FENTANYL CITRATE/PF 50 MCG/ML VIAL ONE (13:35)
[2022-12-30] MEDS ORDERED: ELECTROLYTE-148 SOLN 1,000 ML IV SCH (13:45)
[2022-12-30] MEDS ORDERED: SENNOSIDES/DOCUSATE COMBO (SENNA PLUS) TABLET (UD) PO PRN (13:50)
[2022-12-30] MEDS ORDERED: IBUPROFEN 600 MG TABLET (FP) PO PRN (13:50)
[2022-12-30] MEDS ORDERED: IBUPROFEN 800 MG/8 ML IJ IVPB PRN (13:50)
[2022-12-30] MEDS ORDERED: ACETAMINOPHEN 325 MG TABLET (FP) PO PRN (13:50)
[2022-12-30] MEDS ORDERED: oxyCODONE HCL 5 MG TABLET PO PRN (13:50)
[2022-12-30] MEDS ORDERED: ACETAMINOPHEN 1000 MG/100 ML BAG IVPB PRN (13:50)
[2022-12-30] MEDS ORDERED: morphine SULFATE/PF 1 MG/2 ML (2cc Syringe - QUVA) IT ONE (14:18)
[2022-12-30] MEDS ORDERED: ePHEDrine SULFATE 50 MG/1 ML AMPULE ONE (14:29)
[2022-12-30] MEDS ORDERED: KETOROLAC TROMETHAMINE 30 MG/1 ML VIAL ONE (15:30)
[2022-12-30] MEDS ORDERED: OXYTOCIN 20 UNITS in 0.9% NS 20 UNIT/1,000 ML INFUS.BAG IV ONE (15:58)
[2022-12-30] MEDS: OXYTOCIN 20 UNITS in 0.9% NS 20 UNIT/1,000 ML INFUS.BAG IV SCH (16:00)
[2022-12-30] MEDS: ONDANSETRON 4 MG/2 ML VIAL IVPB PRN ×2 (16:15→20:10)
[2022-12-30 17:01] LABS: CORD HCO3 20.7 mmHg (20-29); CORD PCO2 99.8 mmHg (30-78)
[2022-12-30 17:02] LABS: CORD HCO3 23.1 mmHg (20-29); CORD PCO2 81.9 mmHg (30-78); CORD pH 7.069 (7.14-7.44)
[2022-12-30 17:04] LABS: CORD pH 6.935 (7.14-7.44)
[2022-12-31] MEDS: OXYTOCIN 20 UNITS in 0.9% NS 20 UNIT/1,000 ML INFUS.BAG IV SCH ×2 (03:17→22:21)
[2022-12-31] MEDS ORDERED: ACETAMINOPHEN 325 MG TABLET (FP) PO PRN ×2 (07:39→16:25)
[2022-12-31 09:27] LABS: BASO % 0.4 % (0-2.0); EOS % 0.1 % (0-4.5); HEMATOCRIT 40.4 % (32.4-45.2); HEMOGLOBIN 12.9 GM/dL (10.7-15.3); LYMPH % 10.1 % (8-40); MCH 26.6 pg (25.7-33.7); MCHC 31.8 g/dl (32.0-36.0); MEAN CELL VOLUME 83.8 fl (80-96); MEAN PLT VOLUME 11.7 fl (7.5-11.1); MONO % 3.9 % (3.8-10.2); NEUT % 85.5 % (42.8-82.8); PLATELET COUNT 137 10^3/uL (134-434); RBC 4.83 M/mm3 (3.60-5.2); RDW 14.1 % (11.6-15.6); WHITE BLOOD COUNT 16.5 K/mm3 (4.0-10.0)
[2022-12-31] MEDS: PRENATAL VITAMINS W/ FOLIC ACID TABLET (FP) PO SCH (09:29)
[2022-12-31] MEDS: SIMETHICONE 80 MG TAB.CHEW (FP) PO PRN ×2 (10:28→17:39)
[2022-12-31] MEDS ORDERED: BISACODYL 10 MG SUPP.RECT RC PRN (13:51)
[2022-12-31] MEDS ORDERED: oxyCODONE HCL 5 MG TABLET PO PRN ×2 (16:25)
[2022-12-31] MEDS: IBUPROFEN 600 MG TABLET (FP) PO PRN (17:39)
[2023-01-01] MEDS: IBUPROFEN 600 MG TABLET (FP) PO PRN ×2 (08:33→19:25)
[2023-01-01] MEDS: PRENATAL VITAMINS W/ FOLIC ACID TABLET (FP) PO SCH (09:36)
[2023-01-02] MEDS: IBUPROFEN 600 MG TABLET (FP) PO PRN (06:05)
[2023-01-02] MEDS: SIMETHICONE 80 MG TAB.CHEW (FP) PO PRN (06:05)
[2023-01-02] MEDS: PRENATAL VITAMINS W/ FOLIC ACID TABLET (FP) PO SCH (09:42)
[2023-01-02] MEDS ORDERED: POLYETHYLENE GLYCOL (HEALTHYLAX) 3350 17 GM PACKET PO SCH (10:00)
[2023-01-02 10:26] VITALS: BP 90/68; PULSE 85; RESP 16; TEMP 98.2
== END 2023-01-02 13:50 | disposition home or self-care (01) | DRG 540 ==
LOC: JLDR 10:14 → J3W 17:30
PROVIDERS: ADMIT Family Medicine; ATTEND Family Medicine
PROC: 10D00Z1 Extraction of Products of Conception, Low, Open Approach (ICD-10-PCS; principal; 2022-12-30)
PROC: 0UT70ZZ Resection of Bilateral Fallopian Tubes, Open Approach (ICD-10-PCS; 2022-12-30)
DX: O34.219 Maternal care for unspecified type scar from previous cesarean delivery (principal); Z3A.39 39 weeks gestation of pregnancy; Z37.0 Single live birth; Z30.2 Encounter for sterilization
CPT/HCPCS: 36415; 36600; 82803; 85025; 86780; 87389; 94010